=== PATIENT | male | born 1995 | race Caucasian/White ===

== ENCOUNTER 2021-06-06 22:05 | Emergency (ER) | payer OTHER ==
[2021-06-06 22:14] VITALS: BP 142/75; PULSE 95; RESP 20; TEMP 98.8
--- NOTE | 2021-06-06 22:24 | ED ---
Upper Extremity HPI - General Chief Complaint: Extremity Injury, Upper Stated Complaint: Broken knuckle Time Seen by Provider: 06/06/21 22:09 Source: patient Mode of arrival: ambulatory Limitations: no limitations - History of Present Illness Initial Comments: This is a [id number] 30-year-old male presents the right track complaining of right hand pain after injuring it when he fell shoveling snow earlier today. No other injuries. No distal proximal injuries.No headache, no fever or chills, no changes in vision or hearing, no sore throat or difficulty with speech, no neck pain, no chest pain or shortness of breath, no abdominal pain, no nausea or vomiting, no changes in urination or bowel movements, no numb ness or tingling, no extremity pain, no skin rashes or lesions. MD Complaint: Injury to:: right, hand - Related Data Previous Rx's Medication Instructions Recorded Acetaminophen [Tylenol] 500 mg PO Q4-6H PRN #24 tab 06/06/21 Allergies Allergy/AdvReac Type Severity Reaction Status Date / Time No Known Allergies Allergy Verified 06/06/21 22:27 Review of Systems ROS Statement: Those systems with pertinent positive or pertinent negative responses have been documented in the HPI. ROS Other: All systems not noted in ROS Statement are negative. Past Medical History Past Medical History: No Reported History History of Any Multi-Drug Resistant Organisms: None Reported Past Surgical History: Appendectomy Past Psychological History: Depression Smoking Status: Current some day smoker Past Alcohol Use History: None Reported Past Drug Use History: Marijuana General Exam - General Exam Comments Initial Comments: Healthy-appearing male in no acute distress. Limitations: no limitations General appearance: alert, in no apparent distress Head exam: Present: atraumatic, normocephalic, normal inspection Eye exam: Present: normal appearance, PERRL, EOMI. Absent: scleral icterus, conjunctival injection, periorbital swelling ENT exam: Present: normal exam, mucous membranes moist Neck exam: Present: normal inspection. Absent: tenderness, meningismus, lymphadenopathy Respiratory exam: Present: normal lung sounds bilaterally. Absent: respiratory distress, wheezes, rales, rhonchi, stridor Cardiovascular Exam: Present: regular rate, normal rhythm, normal heart sounds. Absent: systolic murmur, diastolic murmur, rubs, gallop, clicks GI/Abdominal exam: Present: soft, normal bowel sounds. Absent: distended, tenderness Extremities exam: Present: tenderness, normal capillary refill. Absent: normal inspection Right Hand Wrist exam: Present: tenderness, swelling. Absent: normal inspection, full ROM, abrasion, laceration, ecchymosis, deformity, crepitus, dislocation, erythema, amputation, nail avulsion, subungual hematoma Neuro motor exam: Present: wrist extension intact, thumb IP flexion intact, thumb adduction intact, fingers 2-5 abduction intact. Absent: thumb opposition intact Neurosensory exam: Present: radial nerve intact, ulnar nerve intact, median nerve intact Vascular: Present: normal capillary refill, radial pulse (Pulses are intact, cap refill less than 2 seconds). Absent: vascular compromise, Pallo, pulse deficit radial art, pulse deficit ulnar art, pulse deficit brachial art Back exam: Present: normal inspection Neurological exam: Present: alert, oriented X3, CN II-XII intact Psychiatric exam: Present: normal affect, normal mood Skin exam: Present: warm, dry, intact, normal color. Absent: rash Course Vital Signs 06/06/21 22:10 Temperature 98.8 F Pulse Rate 95 Respiratory 20 Rate Blood Pressure 142/75 O2 Sat by Pulse 100 Oximetry Procedures - Orthopedic Fracture Reduction Fracture #1 Consent Obtained: verbal consent Side: right Fracture Reduction Location: metacarpal Analgesia: hematoma block, digital block Technique: direct manipulation Post Reduction X-rays Demonstrate: other (X-rays deferred by patient) Post-Reduction Neuro Exam: intact Post-Reduction Vascular Exam: intact Splint Applied: Yes Patient Tolerated Procedure: well - Orthopedic Splinting/Casting Injury #1 Side: right Upper Extremity Injury Location: hand Upper Extremity Immobilizer: ulnar gutter (Short arm ulnar gutter splint boxer splint) Additional Comments: Neurovascular status intact pre-and post-application Medical Decision Making - Medical Decision Making Patient presents with isolated injury to the right hand. Plain film x-rays ordered. her status was intact. Patient tolerated manipulation. OCL splint applied. Disposition Clinical Impression: Boxer's fracture, Closed displaced fracture of neck of right fifth metacarpal bone Disposition: HOME SELF-CARE Condition: Good Instructions (If sedation given, give patient instructions): Hand Fracture (ED) Additional Instructions: Splint in place until follow-up with orthopedics. Use [id number] acetaminophen as needed for pain control. He can apply ice 20 minutes on and off do not get the splinting material wet. Call tomorrow morning to set up follow-up with orthopedics. Prescriptions: Acetaminophen [Tylenol] 500 mg PO Q4-6H PRN #24 tab PRN Reason: Pain Is patient prescribed a controlled substance at d/c from ED?: No Referrals: Silke Kimbrough DO [Doctor of Osteopathic Medicine] - 1-2 days Time of Disposition: 22:53
--- NOTE | 2021-06-07 00:14 | XR ---
EXAMINATION TYPE: XR hand complete RT DATE OF EXAM: 06/06/2021 COMPARISON: NONE HISTORY: Pain TECHNIQUE: 3 views FINDINGS: There is slightly impacted comminuted fracture of the neck of the fifth metacarpal head. Th ere is no dislocation. There is slight posterior angulation at the fracture site. There is soft tissu e swelling. IMPRESSION: Acute boxer fracture fifth metacarpal head.
== END 2021-06-06 23:06 | disposition home or self-care (01) ==
LOC: EDBD → EC 22:05 → MERGE 22:05 → EC 23:06
DX: S62.316A Displaced fracture of base of fifth metacarpal bone, right hand, initial encounter for closed fracture (principal); F32.A Depression, unspecified; F17.200 Nicotine dependence, unspecified, uncomplicated; F12.90 Cannabis use, unspecified, uncomplicated; Z90.49 Acquired absence of other specified parts of digestive tract; W01.0XXA Fall on same level from slipping, tripping and stumbling without subsequent striking against object, initial encounter; Y93.H1 Activity, digging, shoveling and raking
CPT/HCPCS: 26605; 99283

== ENCOUNTER 2022-06-07 11:25 | Emergency (ER) | payer OTHER ==
[2022-06-07 11:42] VITALS: BP 146/75; PULSE 78; RESP 20; TEMP 98.6
--- NOTE | 2022-06-07 12:26 | ED ---
Upper Extremity HPI - General Chief Complaint: Extremity Injury, Upper Stated Complaint: R hand injury Time Seen by Provider: 06/07/22 11:42 Source: patient, RN notes reviewed Mode of arrival: ambulatory Limitations: no limitations - History of Present Illness Initial Comments: 26-year-old male presents emergency Department with chief complaint of right hand injury. Patient states he became upset this morning and punched a wall. Patient states that he had a hand fracture in the past similar to this. Patient denies any paresthesias no other associated complaints - Related Data Previous Rx's Medication Instructions Recorded buPROPion XL [Wellbutrin XL] 150 mg PO DAILY #30 tab.er.24h 09/21/15 Acetaminophen [Tylenol] 500 mg PO Q4-6H PRN #24 tab 06/06/21 Allergies Allergy/AdvReac Type Severity Reaction Status Date / Time No Known Allergies Allergy Verified 06/07/22 11:41 Review of Systems ROS Statement: Those systems with pertinent positive or pertinent negative responses have been documented in the HPI. ROS Other: All systems not noted in ROS Statement are negative. Past Medical History Past Medical History: No Reported History Additional Past Medical History / Comment(s): acne to face History of Any Multi-Drug Resistant Organisms: None Reported Past Surgical History: Appendectomy Past Anesthesia/Blood Transfusion Reactions: No Reported Reaction Past Psychological History: ADD/ADHD, Depression Smoking Status: Vaper Past Alcohol Use History: None Reported Past Drug Use History: Marijuana - Past Family History Mother Additional Family Medical History / Comment(s): Mother is in her 30s with history of Back Pain, Gallbladder surgery Father History Unknown: Yes Additional Family Medical History / Comment(s): Patient does not have any contact with his father. He does not know his medical history. Brother(s) Family Medical History: No Reported History Additional Family Medical History / Comment(s): He has one brother that is 3 years of age. He does not have any sisters. General Exam Limitations: no limitations General appearance: alert, in no apparent distress Head exam: Present: atraumatic, normocephalic, normal inspection Neck exam: Present: normal inspection. Absent: tenderness, meningismus, lymphadenopathy Respiratory exam: Present: normal lung sounds bilaterally. Absent: respiratory distress, wheezes, rales, rhonchi, stridor Cardiovascular Exam: Present: regular rate, normal rhythm, normal heart sounds. Absent: systolic murmur, diastolic murmur, rubs, gallop, clicks Extremities exam: Present: other (right hand swelling over the fourth and fifth metacarpal region, ecchymosis, neurovascular intact and tenderness with palpation) Course Vital Signs 06/07/22 11:39 Temperature 98.6 F Pulse Rate 78 Respiratory 20 Rate Blood Pressure 146/75 O2 Sat by Pulse 99 Oximetry Procedures - Orthopedic Splinting/Casting Injury #1 Side: right Upper Extremity Injury Location: short arm, hand Upper Extremity Immobilizer: ulnar gutter, synthetic pre-padded splint Additional Comments: Neurovascular intact before and after procedure performed by me Medical Decision Making - Medical Decision Making Was pt. sent in by a medical professional or institution (, PA, CLOTH COVERED HELMET PULLER, urgent care, hospital, or care home...) When possible be specific @ -No Did you speak to anyone other than the patient for history (EMS, parent, family, police, friend...)? What history was obtained from this source @ -No Did you review nursing and triage notes (agree or disagree)? Why? @ -I reviewed and agree with nursing and triage notes Were old charts reviewed (outside hosp., previous admission, EMS record, old EKG, old radiological studies, urgent care reports/EKG's, care home records)? Report findings @ -No old charts were reviewed Differential Diagnosis (chest pain, altered mental status, abdominal pain women, abdominal pain men, vaginal bleeding, weakness, fever, dyspnea, syncope, headache, dizziness, GI bleed, back pain, seizure, CVA, palpatations, mental health)? @ -Right hand fracture, right hand sprain, right hand dislocation EKG interpreted by me (3pts min.). @ -None X-rays interpreted by me (1pt min.). @ -X-ray of the right hand shows displaced fractures of the fourth and fifth metacarpal CT interpreted by me (1pt min.). @ -None done U/S interpreted by me (1pt. min.). @ -None done What testing was considered but not performed or refused? (CT, X-rays, U/S, labs)? Why? @ -None What meds were considered but not given or refused? Why? @ -None Did you discuss the management of the patient with other professionals (professionals i.e. , PA, CLOTH COVERED HELMET PULLER, lab, RT, psych nurse, social worker palliative care, trailer driver, teacher, airline pilot/first officer, telephonic nurse case manager)? Give summary @ -Discussed the case with Dr. Lal recommends patient be splinted and follow up with Dr. Kimbrough on Thursday. Was smoking cessation discussed for >3mins.? @ -No Was critical care preformed (if so, how long)? @ -No Were there social determinants of health that impacted care today? How? (Homelessness, low income, unemployed, alcoholism, drug addiction, transportation, low edu. Level, literacy, decrease access to med. care, snf, rehab)? @ -No Was there de-escalation of care discussed even if they declined (Discuss DNR or withdrawal of care, Hospice)? DNR status @ -No What co-morbidities impacted this encounter? (DM, HTN, Smoking, COPD, CAD, Cancer, CVA, ARF, Chemo, Hep., AIDS, mental health diagnosis, sleep apnea, morbid obesity)? @ -None Was patient admitted / discharged? Hospital course, mention meds given and route, prescriptions, significant lab abnormalities, going to OR and other pertinent info. @ -hospital course Undiagnosed new problem with uncertain prognosis? @ -No Drug Therapy requiring intensive monitoring for toxicity (Heparin, Nitro, Insulin, Cardizem)? @ -No Were any procedures done? @ -Yes splinting see procedure note Diagnosis/symptom? @ -Right hand fourth, fifth metacarpal fracture Acute, or Chronic, or Acute on Chronic? @ -Acute Uncomplicated (without systemic symptoms) or Complicated (systemic symptoms)? @ -Uncomplicated Side effects of treatment? @ -No Exacerbation, Progression, or Severe Exacerbation? @ -No Poses a threat to life or bodily function? How? (Chest pain, [place], [place], pneumonia, PE, COPD, DKA, ARF, appy, cholecystitis, CVA, Diverticulitis, Homicidal, Suicidal, threat to staff... and all critical care pts) @ -No Disposition Clinical Impression: Right hand fracture, Fracture of fifth metacarpal bone, Fracture of fourth metacarpal bone Disposition: HOME SELF-CARE Condition: Stable Instructions (If sedation given, give patient instructions): Hand Fracture (ED) Additional Instructions: Please return to the Emergency Department if symptoms worsen or any other concerns. Is patient prescribed a controlled substance at d/c from ED?: No Referrals: Silke Kimbrough DO [Doctor of Osteopathic Medicine] - 1-2 days Time of Disposition: 12:44
--- NOTE | 2022-06-07 12:52 | XR ---
EXAMINATION TYPE: XR hand complete RT DATE OF EXAM: 06/07/2022 CLINICAL HISTORY: Pain TECHNIQUE: Frontal, lateral and oblique images of the right hand are obtained. COMPARISON: Right hand x-rays June 06, 2021 FINDINGS: There is new acute comminuted displaced fracture distal metadiaphysis right fifth metacarp al. There is slight radial and volar angulation and displacement of the distal fracture fragment. The re is additional transverse displaced fracture mid shaft level of fourth metacarpal. Distal fracture fragment is 6 mm dorsally displaced and slightly radially and volarly. The joint spaces in the right hand appear within normal limits. The overlying soft tissue appears unremarkable. IMPRESSION: As above.
== END 2022-06-07 12:58 | disposition home or self-care (01) ==
LOC: EC 11:25
DX: S62.306A Unspecified fracture of fifth metacarpal bone, right hand, initial encounter for closed fracture (principal); S62.304A Unspecified fracture of fourth metacarpal bone, right hand, initial encounter for closed fracture; F32.A Depression, unspecified; F17.290 Nicotine dependence, other tobacco product, uncomplicated; F12.90 Cannabis use, unspecified, uncomplicated; W22.09XA Striking against other stationary object, initial encounter
CPT/HCPCS: 29125; 99283

== ENCOUNTER 2024-11-12 20:11 | Emergency (ER) | payer OTHER ==
--- NOTE | 2024-11-12 21:06 | ED ---
Anxiety HPI - General Stated Complaint: collar bone injury Time Seen by Provider: 11/12/24 20:17 - History of Present Illness MD Complaint: anxiety Onset/Timin -: hour(s) Provoking factors: emotional stress Associated symptoms: nausea/vomiting - Related Data Home Medications: Previous Rx's Medication Instructions Recorded buPROPion XL [Wellbutrin XL] 150 mg PO DAILY #30 tab.er.24h 09/21/15 Acetaminophen [Tylenol] 500 mg PO Q4-6H PRN #24 tab 06/06/21 Allergies/Adverse Reactions: Allergies Allergy/AdvReac Type Severity Reaction Status Date / Time No Known Allergies Allergy Verified 06/16/22 13:11 Review of Systems ROS Statement: Those systems with pertinent positive or pertinent negative responses have been documented in the HPI. ROS Other: All systems not noted in ROS Statement are negative. Past Medical History Past Medical History: No Reported History Additional Past Medical History / Comment(s): acne to face History of Any Multi-Drug Resistant Organisms: None Reported Past Surgical History: Appendectomy Past Anesthesia/Blood Transfusion Reactions: No Reported Reaction Past Psychological History: ADD/ADHD, Depression Smoking Status: Vaper Past Alcohol Use History: None Reported Past Drug Use History: Marijuana - Past Family History Mother Additional Family Medical History / Comment(s): Mother is in her 30s with history of Back Pain, Gallbladder surgery Father History Unknown: Yes Additional Family Medical History / Comment(s): Patient does not have any contact with his father. He does not know his medical history. Brother(s) Family Medical History: No Reported History Additional Family Medical History / Comment(s): He has one brother that is 3 years of age. He does not have any sisters. Medical Decision Making - Medical Decision Making Was pt. sent in by a medical professional or institution (, PA, IRISH MOSS BLEACHER, urgent care, hospital, or long term...) When possible be specific @ -[No] Did you speak to anyone other than the patient for history (EMS, parent, family, police, friend...)? What history was obtained from this source @ -[No] Did you review nursing and triage notes (agree or disagree)? Why? @ -[I reviewed and agree with nursing and triage notes] Were old charts reviewed (outside hosp., previous admission, EMS record, old EKG, old radiological studies, urgent care reports/EKG's, long term records)? Report findings @ -[No old charts were reviewed] Differential Diagnosis (chest pain, altered mental status, abdominal pain women, abdominal pain men, vaginal bleeding, weakness, fever, dyspnea, syncope, headache, dizziness, GI bleed, back pain, seizure, CVA, palpatations, mental health, musculoskeletal)? @ -Differential Mental Health Depression, anxiety, bipolar, psychosis, schizophrenia, borderline personality, situational depression, adjustment disorder, behavioral disorder, brain tumor, malingering, substance abuse, encephalopathy, medication reaction, dementia, hypothyroidism, degenerative neurologic disorder, lupus.... This is not meant to be all-inclusive list EKG interpreted by me (3pts min.). @ -[As above] X-rays interpreted by me (1pt min.). @ -[None done] CT interpreted by me (1pt min.). @ -[None done] U/S interpreted by me (1pt. min.). @ -[None done] What testing was considered but not performed or refused? (CT, X-rays, U/S, labs)? Why? @ -[None] What meds were considered but not given or refused? Why? @ -[None] Did you discuss the management of the patient with other professionals (professionals i.e. , PA, IRISH MOSS BLEACHER, lab, RT, psych nurse, sr. social media & mobile manager, washer and capper machine operator, teacher, chief lifestyle officer, case maker)? Give summary @ -[No] Was smoking cessation discussed for >3mins.? @ -[No] Was critical care preformed (if so, how long)? @ -[No] Were there social determinants of health that impacted care today? How? (Homelessness, low income, unemployed, alcoholism, drug addiction, transportation, low edu. Level, literacy, decrease access to med. care, group home, rehab)? @ -[No] Was there de-escalation of care discussed even if they declined (Discuss DNR or withdrawal of care, Hospice)? DNR status @ -[No] What co-morbidities impacted this encounter? (DM, HTN, Smoking, COPD, CAD, Cancer, CVA, ARF, Chemo, Hep., AIDS, mental health diagnosis, sleep apnea, morbid obesity)? @ -[None] Was patient admitted / discharged? Hospital course, mention meds given and route, prescriptions, significant lab abnormalities, going to OR and other pertinent info. @ -[hospital course] Undiagnosed new problem with uncertain prognosis? @ -[No] Drug Therapy requiring intensive monitoring for toxicity (Heparin, Nitro, Insulin, Cardizem)? @ -[No] Were any procedures done? @ -[No] Diagnosis/symptom? @ -[default] Acute, or Chronic, or Acute on Chronic? @ -Acute Uncomplicated (without systemic symptoms) or Complicated (systemic symptoms)? @ -Uncomplicated Side effects of treatment? @ -[No] Exacerbation, Progression, or Severe Exacerbation? @ -[No] Poses a threat to life or bodily function? How? (Chest pain, [place], [place], pneumonia, PE, COPD, DKA, ARF, appy, cholecystitis, CVA, Diverticulitis, Homicidal, Suicidal, threat to staff... and all critical care pts) @ -[No] Disposition Referrals: None,Stated [Primary Care Provider] - 1-2 days
[2024-11-12 21:14] VITALS: RESP 18
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
[2024-11-12] MEDS: KETOROLAC 15 MG/ML 1 ML VIAL IM STA (21:48)
[2024-11-12] MEDS: HYDROmorphone 1 MG/ML 1 ML SYRINGE IM STA (21:49)
[2024-11-12] MEDS: ACETAMINOPHEN TAB 500 MG TAB PO STA (21:50)
--- NOTE | 2024-11-12 22:07 | XR ---
EXAMINATION TYPE: XR clavicle LT DATE OF EXAM: 11/12/2024 9:47 PM INDICATION: Patient age:Male; 29 years old; Reason for study: Fall; [facility]. pain COMPARISON: None TECHNIQUE: AP and cephalic tilt views were obtained of the left clavicle. FINDINGS: Acute distal left clavicular fracture with superior displacement of the proximal clavicle. There is o verriding appearance of approximate 4.8 cm. No dislocation of the AC joint or shoulder. The visualize d portions of the left upper chest are unremarkable. IMPRESSION: Acute moderately displaced distal left clavicular fracture with overriding ends. [facility], , 11/12/2024 10:05 PM
[2024-11-12 22:58] VITALS: BP 145/77; PULSE 87; TEMP 98.1
== END 2024-11-12 23:06 | disposition home or self-care (01) ==
LOC: EC 20:11
DX: S42.022A Displaced fracture of shaft of left clavicle, initial encounter for closed fracture (principal); S42.032A Displaced fracture of lateral end of left clavicle, initial encounter for closed fracture; F17.290 Nicotine dependence, other tobacco product, uncomplicated; V18.0XXA Pedal cycle driver injured in noncollision transport accident in nontraffic accident, initial encounter; Y93.55 Activity, bike riding
CPT/HCPCS: 73000; 99283; 96372; J1171; J1885; 99284

== ENCOUNTER 2024-11-29 07:42 | Emergency (ER) | payer OTHER ==
[2024-11-29 07:49] VITALS: TEMP 97.9
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
--- NOTE | 2024-11-29 08:40 | XR ---
EXAMINATION TYPE: XR chest 1V, XR clavicle LT DATE OF EXAM: 11/29/2024 8:34 AM COMPARISON: Left clavicle radiographs 11/12/2024 TECHNIQUE: XR chest 1V, XR clavicle LT Portable AP radiograph of the chest. The left clavicle was aleksandar luated in 2 projections. CLINICAL INDICATION:Male, 29 years old with history of pain, hx of fracture; FINDINGS: Lungs/Pleura: There is no evidence of pleural effusion, focal consolidation, or pneumothorax. Pulmonary vascularity: Unremarkable. Heart/mediastinum: Cardiomediastinal silhouette is unremarkable. Musculoskeletal: Redemonstration of moderately displaced distal left clavicular fracture with overrid ing ends. Approximate 4.5 cm of overriding. IMPRESSION: 1. No acute cardiopulmonary disease/process. 2. Redemonstration of moderately displaced distal left clavicular fracture with overriding ends. No significant change from prior exam. [facility], , 11/29/2024 8:37 AM
[2024-11-29] MEDS: MORPHINE SULFATE 4 MG/ML SYRINGE IV STA (09:00)
[2024-11-29] MEDS: MORPHINE SULFATE 4 MG/ML SYRINGE IM STA (09:12)
[2024-11-29 09:39] VITALS: BP 147/95; PULSE 75; RESP 18
== END 2024-11-29 09:42 | disposition home or self-care (01) ==
LOC: EC 07:42
DX: S42.032A Displaced fracture of lateral end of left clavicle, initial encounter for closed fracture (principal); F17.290 Nicotine dependence, other tobacco product, uncomplicated; X58.XXXA Exposure to other specified factors, initial encounter
CPT/HCPCS: 73000; 71045; 99283; 96372; J2270